=== PATIENT | male | born 1965 ===

== ENCOUNTER 2020-05-16 18:37 | Emergency (ER) | payer BC, OTHER ==
--- NOTE | 2020-05-16 18:44 | EDM.PDOC ---
ED HPI GENERAL MEDICAL PROBLEM - General Chief Complaint: Upper Extremity Injury/Pain Stated Complaint: laceration Time Seen by Provider: 05/16/20 18:37 Source of Information: Reports: Patient History Limitations: Reports: No Limitations - History of Present Illness INITIAL COMMENTS - FREE TEXT/NARRATIVE: Patient comes into the emergency department with complaint of a laceration to his right index finger. Patient states that he was working in his garage and an item fell off of his head he tried to catch it with his hand and ended up causing a laceration to his right index finger. He states that there was a significant amount of bleeding initially but he was able to control the bleeding With manual pressure. Patient states that he was hopeful to use a Band-Aid however after Further investigation the patient feltMore medical attention was needed. Patient denies any CMS or range of motion concerns. He denies any major discomfort or pain. Patient states he is able to move his extremity in all ways without difficulty. He also denies feeling lightheaded dizzy, blurred vision, changes in vision, chest pain, shortness of breath, diaphoretic, peripheral edema, nauseated, or peripheral edema. Patient states he is been relatively healthy and has had no major injuries or concerns related to his right hand. Patient also denies any active COVID-19 symptoms or recent exposure. Onset: Sudden Quality: Reports: Other Severity: Mild Improves with: Reports: Immobilization Worsens with: Reports: Movement Context: Reports: Activity Associated Symptoms: Reports: No Other Symptoms Treatments [employer]: Reports: Other (see below) (manual pressure of wound) Review of Systems - Review of Systems Review Of Systems: Comprehensive ROS is negative, except as noted in HPI. Constitutional: Reports: No Symptoms Eyes: Reports: No Symptoms Ears: Reports: No Symptoms Nose: Reports: No Symptoms Mouth/Throat: Reports: No Symptoms Respiratory: Reports: No Symptoms Cardiovascular: Reports: No Symptoms GI/Abdominal: Reports: No Symptoms Genitourinary: Reports: No Symptoms Musculoskeletal: Reports: No Symptoms Skin: Reports: No Symptoms Neurological: Reports: No Symptoms Psychiatric: Reports: No Symptoms ED EXAM, GENERAL - Physical Exam Exam: See Below Exam Limited By: No Limitations General Appearance: Alert, WD/WN, No Apparent Distress Head: Atraumatic, Normocephalic Neck: Normal Inspection, Supple, Non-Tender, Full Range of Motion Respiratory/Chest: No Respiratory Distress, No Accessory Muscle Use, Chest Non- Tender Cardiovascular: Normal Peripheral Pulses, Regular Rate, Rhythm Peripheral Pulses: 4+: Radial (L), Radial (R) Extremities: Normal Inspection, Normal Range of Motion, Non-Tender, No Pedal Edema, Normal Capillary Refill Neurological: Alert, Oriented, Normal Cognition, Normal Gait Psychiatric: Normal Affect, Normal Mood Skin Exam: Warm, Dry, Intact, Normal Color, Other (laceration right index finger. bleeding controlled, no redness, debri, swelling, or warmth noted. CMS & ROM intact) ED TRAUMA EXTREMITY PROCEDURES - Laceration/Wound Repair Right Digit - 2nd (Index) Lac/Wound Length In cm: 2 Appearance: Irregular, Clean Distal NVT: Neuro & Vascular Intact, No Tendon Injury Anesthetic Type: Local Local Anesthesia - Lidocaine (Xylocaine): 1% Plain Local Anesthetic Volume: 4cc Skin Prep: Chlorhexidine (Hibiciens) Exploration/Debridement/Repair: Wound Explored, No Foreign Material Found Closed With: Sutures Suture Size: 4-0 # of Sutures: 8 Suture Type: Simple Sterile Dressing Applied: Other Tetanus Status Addressed: Yes Complications: No Course - Orders/Labs/Meds Orders: Active Orders 24 hr Category Date Time Status Lidocaine 1% [Xylocaine-MPF 1%] Med 05/16/20 18:38 Once 5 ml INJECT ONETIME ONE Medication Orders Lidocaine HCl (Xylocaine-Mpf 1%) 5 ml INJECT ONETIME ONE Stop: 05/16/20 18:39 Meds: Medications Generic Name Dose Route Start Last Admin Trade Name Freq PRN Reason Stop Dose Admin Lidocaine HCl 5 ml 05/16/20 18:38 Xylocaine-Mpf 1% INJECT 05/16/20 18:39 ONETIME ONE Departure - Departure Time of Disposition: 19:10 Disposition: Home, Self-Care 01 Condition: Good Clinical Impression: Laceration of right index finger Qualifiers: Encounter type: initial encounter Damage to nail status: without damage Foreign body presence: without foreign body Qualified Code(s): S61.210A - Laceration without foreign body of right index finger without damage to nail, initial encounter - Discharge Information *PRESCRIPTION DRUG MONITORING PROGRAM REVIEWED*: Not Applicable *COPY OF PRESCRIPTION DRUG MONITORING REPORT IN PATIENT PAIGE: Not Applicable Instructions: Laceration Care, Adult, [id number], Sutures, Zaida, or Adhesive Wound Closure Forms: ED Department Discharge, ED Return to Work/School Form Additional Instructions: 1. Rest 2. Keep the area clean and dry 3. Can use tylenol and ibuprofen as needed for pain and discomfort 4. Diet as tolerated 5. Activity as tolerated 6. Elevated the injured area above the level of the heart to decrease swelling and discomfort if applicable 7. Can use ice 3-4 times a day at 20-minute intervals to help with any swelling and discomfort 8. Follow-up with your primary care provider symptoms continue or to progress 9. Discharge information has been provided regarding your injury and wound care has been provided 10. Avoid an public pools or hot tubes until wound is healed. 11. Follow up in the Clinic in 10 days for removal of sutures - My Orders Last 24 Hours: My Active Orders 05/16/20 18:38 Lidocaine 1% [Xylocaine-MPF 1%] 5 ml INJECT ONETIME ONE - Assessment/Plan Last 24 Hours: My Active Orders 05/16/20 18:38 Lidocaine 1% [Xylocaine-MPF 1%] 5 ml INJECT ONETIME ONE Assessment:: 1.laceration right index finger Plan: 1. Wound cleansing completed 2. Laceration repair completed 3. Tdap vaccine history completed 4. Education regarding wound care, dressing changes, OTC medications, activity, diet, follow up care and when to seek care if warranted provided 5. Patient is to return to the clinic in 10 days to have sutures site evaluated and removed 6. Patient was encouraged to call or return if any questions or concerns arise.
== END 2020-05-16 19:22 | disposition home or self-care (01) ==
LOC: VM.ED 18:37
DX: S61.210A Laceration without foreign body of right index finger without damage to nail, initial encounter (principal); W45.8XXA Other foreign body or object entering through skin, initial encounter
CPT/HCPCS: 12001; 99282; 99283; J2001